=== PATIENT | female | born 1940 | race Caucasian/White ===

== ENCOUNTER 2018-07-17 08:34 | Inpatient (IN) | payer OTHER ==
[~2018-07-17] VITALS: Ht 154.9 cm; Wt 86.2 kg
--- NOTE | ~2018-07-17 | EKG ---
[address] [address] ELECTROCARDIOGRAM REPORT Name: VIVIANLORETOJOHANA CASSIDY Room #: 430- ADM IN M.R.#: [id number] Admission: 07/17/18 Attend Phys: Jazmín Sampson MD Discharge: Date of : 36 Report #: [id number] THIS REPORT FOR: //name// [facility] ED Test Date: 2018-07-17 Test Time: 09:03:59 Pat Name: LORETO PARK Department: Room: 430 Gender: F [employer]: MYLES : 1940 Requested By: Caron Gonzalez Order Number: [id number] MD: Shashi Wiggins Measurements Intervals [place] Rate: 78 P: 54 MI: 153 QRS: -8 QRSD: 95 T: 48 QT: 402 QTc: 458 Interpretive Statements Sinus rhythm Low voltage, precordial leads Compared to ECG 04/11/2006 05:58:21 No significant change was found Electronically Signed On 07-17-2018 17:15:54 CDT by Shashi Wiggins [email or web address] <ELECTRONICALLY SIGNED> By: Shashi Wiggins MD, [facility] 07/17/18 1715 2 2 Shashi Wiggins MD, [facility] /EPI
[2018-07-17 08:40] VITALS: BP 128/63
[2018-07-17 09:14] LABS: ABSOLUTE NEUTROPHILS 5.6 thou/uL (1.4-8.2); BASOPHILS 0.9 % (0.0-2.0); EOSINOPHILS 0.7 % (0.0-3.0); HEMATOCRIT 40.8 % (37.0-47.0); HEMOGLOBIN 14.3 gm/dL (12.0-15.0); LYMPHOCYTES 14.7 % (24.0-44.0); MCH 32.2 pg (26.0-34.0); MCHC 35.1 g/dL (28.0-37.0); MCV 91.8 fL (80.0-100.0); MONOCYTES 7.8 % (1.0-8.0); PLATELET COUNT 272 thou/uL (150-400); POLYS 75.9 % (36.0-66.0); RBC 4.44 mil/uL (4.20-5.00); RDW 14.2 % (10.5-14.5); WBC 7.4 thou/uL (4.0-11.0)
[2018-07-17 09:20] LABS: ANION GAP 8 mmol/L (7-16); BUN 15 mg/dL (7-18); CALCIUM 9.4 mg/dL (8.5-10.1); CHLORIDE 105 mmol/L (98-107); CO2 29 mmol/L (21-32); CREATININE 0.8 mg/dL (0.6-1.0); GLUCOSE 121 mg/dL (74-106); POTASSIUM 3.4 mmol/L (3.5-5.1); SODIUM 142 mmol/L (136-145)
[2018-07-17 09:29] LABS: ALBUMIN 2.9 g/dL (3.4-5.0); SGOT 27 U/L (15-37); SGPT 37 U/L (30-65); TOTAL BILIRUBIN 0.3 mg/dL (<0.1-1.0); TOTAL PROTEIN 7.7 g/dL (6.4-8.2); TROPONIN-I <0.06 ng/mL (<0.06)
[2018-07-17 09:44] LABS: URINE BILIRUBIN NEGATIVE (Negative); URINE BLOOD 1+ (Negative); URINE CLARITY CLEAR; URINE COLOR YELLOW; URINE GLUCOSE-RANDOM* NEGATIVE (Negative); URINE KETONES NEGATIVE (Negative); URINE NITRITE-REFLEX NEGATIVE (Negative); URINE PROTEIN (DIPSTICK) NEGATIVE (Negative); URINE SPECIFIC GRAVITY 1.015 (1.005-1.035); URINE UROBILINOGEN 0.2 E.U./dl (0.2-1.0)
[2018-07-17 09:48] LABS: URINE LEUKOCYTES-REFLEX 1+ (Negative)
[2018-07-17 09:54] LABS: BACTERIA-REFLEX 1-9 Few /HPF (None Seen); CASTS None Seen /LPF (None Seen); CRYSTALS None Seen /LPF (None Seen); SQUAMOUS 0-3 Few /LPF (0-3); URINE RBC 3-10 Few /HPF (0-2); URINE WBC-REFLEX 6-15 Few /HPF (0-5)
[2018-07-17 11:08] VITALS: BP 128/63
[2018-07-17 11:18] LABS: CHOLESTEROL 176 mg/dL (<200); HDL CHOLESTEROL 34 mg/dL (>40); LDL CHOLESTEROL 115 mg/dL (<100); TC:HDL 5.2 Ratio (Not establshd); TRIGLYCERIDE 135 mg/dL (<150); VLDL 27 mg/dL (<40)
[2018-07-17 11:44] LABS: TSH 3.654 uIU/mL (0.358-3.740)
[2018-07-17 11:48] VITALS: BP 129/66
[2018-07-17 12:32] VITALS: BP 130/56
[2018-07-17 17:40] VITALS: BP 117/57
[2018-07-17 18:11] LABS: GLYCOHEMOGLOBIN (HGB A1C) 7.9 % (4.8-5.6)
[2018-07-17] MEDS ORDERED: AMLODIPINE BESY10 MG PO (18:30)
[2018-07-17] MEDS ORDERED: CHILDREN'S ASPI81 M1 PO (18:32)
[2018-07-17] MEDS ORDERED: DULCOLAX5 MG (18:34)
[2018-07-17] MEDS ORDERED: IRON325 PO (18:34)
[2018-07-17] MEDS ORDERED: SYNTHROID125 MC1 (18:35)
[2018-07-17] MEDS ORDERED: ZOLOFT50 MG PO (18:36)
[2018-07-17] MEDS ORDERED: PEPCID20 MG (18:37)
[2018-07-17] MEDS ORDERED: NAMENDA 10 MG T10 MG PO (18:38)
[2018-07-17] MEDS ORDERED: ZYPREXA 5 MG TAB5 M1 PO (18:41)
[2018-07-17] MEDS ORDERED: SEROQUEL 50 MG50 MG PO (18:41)
[2018-07-17] MEDS ORDERED: ATIVAN1 MG PO (18:43)
[2018-07-17] MEDS ORDERED: ZYPREXA 10 MG T10 MG (18:45)
[2018-07-17 19:50] VITALS: BP 142/83
[2018-07-17] MEDS ORDERED: BUSPIRONE HCL10 MG PO (22:01)
[2018-07-17] MEDS ORDERED: CLONIDINE0.1 PO (22:03)
[2018-07-17] MEDS ORDERED: MAGOX 400400 MG PO (22:13)
[2018-07-17] MEDS ORDERED: GAS RELIEF80 MG PO (22:15)
[2018-07-18 05:02] VITALS: BP 152/71
[2018-07-18] MEDS ORDERED: TYLENOL EXTRA500 MG PO (05:05)
[2018-07-18] MEDS ORDERED: OXYCODONE HCL 55 MG PO (05:20)
[2018-07-18 06:33] LABS: HEMATOCRIT 40.2 % (37.0-47.0); HEMOGLOBIN 13.6 gm/dL (12.0-15.0); MCH 31.3 pg (26.0-34.0); MCHC 33.9 g/dL (28.0-37.0); MCV 92.4 fL (80.0-100.0); RBC 4.35 mil/uL (4.20-5.00); RDW 14.1 % (10.5-14.5)
[2018-07-18 06:41] LABS: CREATININE 0.8 mg/dL (0.6-1.0); POTASSIUM 3.3 mmol/L (3.5-5.1)
[2018-07-18 07:20] VITALS: BP 142/64
[2018-07-18 19:13] VITALS: BP 107/92
[2018-07-19 05:04] VITALS: BP 148/75
[2018-07-19 07:30] VITALS: BP 132/47
[2018-07-19 20:30] VITALS: BP 159/74
[2018-07-20 04:30] VITALS: BP 150/63
[2018-07-20 07:40] VITALS: BP 141/53
[2018-07-20 09:00] VITALS: BP 141/53
[2018-07-20] MEDS ORDERED: LEVAQUIN 500 M500 M2 PO (10:29)
[2018-07-20 16:07] VITALS: BP 142/75
== END 2018-07-20 18:39 | DRG 690 ==
LOC: ER 08:34 → EROBS 10:20 → 4E 12:09
PROVIDERS: Internal Medicine; Student in an Organized Health Care Education/Training Program
DX: N39.0 Urinary tract infection, site not specified (principal); G93.40 Encephalopathy, unspecified; I10 Essential (primary) hypertension; E11.9 Type 2 diabetes mellitus without complications; H91.90 Unspecified hearing loss, unspecified ear; J45.909 Unspecified asthma, uncomplicated; H35.30 Unspecified macular degeneration; N31.9 Neuromuscular dysfunction of bladder, unspecified; G35 Multiple sclerosis; B96.20 Unspecified Escherichia coli [E. coli] as the cause of diseases classified elsewhere; B96.5 Pseudomonas (aeruginosa) (mallei) (pseudomallei) as the cause of diseases classified elsewhere; K44.9 Diaphragmatic hernia without obstruction or gangrene; Z74.01 Bed confinement status; Z28.21 Immunization not carried out because of patient refusal; Z86.73 Personal history of transient ischemic attack (TIA), and cerebral infarction without residual deficits; Z79.899 Other long term (current) drug therapy; Z88.5 Allergy status to narcotic agent; Z88.8 Allergy status to other drugs, medicaments and biological substances
CPT/HCPCS: 10084